=== PATIENT | male | born 1990 | race Caucasian/White ===

== ENCOUNTER 2017-03-16 20:39 | Emergency (ER) | payer SELFPAY ==
[~2017-03-16 20:39] MED LIST: Z.0.NO CURRENT MEDS
[2017-03-16 20:49] VITALS: BP 160/89; PULSE 98; RESP 20; TEMP 99.5; O2SAT 98
[2017-03-16 22:56] VITALS: BP 152/92; PULSE 79; RESP 20; O2SAT 99
--- NOTE | 2017-03-16 23:04 | PD ---
HPI Chief Complaint: Headache Time Seen by Provider: 23:00 Travel History International Travel<30 days: No Contact w/Intl Traveler<30days: No Traveled to known affect area: No History of Present Illness HPI 27-year-old male presents to the emergency department for complaint of right frontal headache that worsens with leaning forward and with coughing. Patient states has had headaches intermittently since craniotomy in 2006 secondary to injury. Headache is not described as sudden onset thunderclap or worst ever. Patient states headache is quite severe however presents today he took 3 Excedrin and did not seem to providing any relief. Patient's had subjective fever and myalgias and arthralgias did not have the flu vaccine. Patient's had some mild sore throat but no real throat pain nonproductive cough nausea without vomiting no chest pain no shortness of breath. No report of abdominal pain change in bowel habits or urinary symptoms. No joint pain or swelling. Does complain of myalgias and arthralgias. No skin rash. Patient rates pain as 2/10 in intensity. Patient also took a dose of Mucinex but he did not think that it made any difference. [facility] Past Medical History Narrative Medical Head injury, craniotomy, right shoulder dislocation, occasional alcohol use; nursing notes reviewed Asthma: No Autoimmune Disease: No Blood Disorders: No Anxiety: No Depression: No (HAS BEEN IN [facility] IN PAST, NOW WITH BROTHER) Cardiovascular Problems: No Diminished Hearing: No Genitourinary: No Musculoskeletal: Yes (STATED DISLOC R SHOLDER 15-20 TIMES) Neurologic: No Psychiatric: No Respiratory: No Sickle Cell Disease: No Past Surgical History Genitourinary Surgery: Yes (RIGHT IHR-INFANT) Neurologic Surgery: Yes (CRANIOTOMY r/t injury) Other Surgery: No Social History Alcohol Use: Yes (WEEKLY) Tobacco Use: No Substance Use: No Allergies-Medications (Allergen,Severity, Reaction): Coded Allergies: Sulfa (Sulfonamide Antibiotics) (Unverified Allergy, Unknown, unsure, 03/16) codeine (Unverified Allergy, Unknown, unsure, 03/16/17) Reported Meds & Prescriptions Reported Meds & Active Scripts Active Reported Day Time Cold-Flu Liquid (D-Methorphan/PE/Acetaminophen) 10 Mg-5 Mg-325 Mg/15 Ml Liquid 10 Mg PO Q6HR Excedrin Extra Strength (Ugevsof-Jtoyfcsnkbxge-Xxzbrbdg) 250 Mg-250 Mg-65 Mg Tab 500 Mg PO Q6HR No Current Meds (Miscellaneous Medication) Misc Narrative Medication Mucinex, Excedrin Review of Systems Except as stated in HPI: all other systems reviewed are Neg General / Constitutional: Positive: Fever, No: Chills HENT: Positive: Headaches, Sore Throat, Congestion (subjective), No: Neck Stiffness, Neck Pain, Ear Discharge, Earache Cardiovascular: No: Chest Pain or Discomfort Respiratory: Positive: Cough, No: Shortness of Breath, Wheezing (mild occasional intermittent) Gastrointestinal: Positive: Nausea, No: Vomiting, Diarrhea, Abdominal Pain Genitourinary: No: Dysuria, Flank Pain Musculoskeletal: Positive: Myalgias, Arthralgias Neurologic: Positive: Headache, No: Weakness, Dizziness, Syncope, Focal Abnormalities, Change in Mentation, Paresthesia, Seizures, Sensory Disturbance Psychiatric: No: Anxiety Hematologic/Lymphatic: No: Lymph Node Enlargement Physical Exam Narrative GENERAL: Well-developed well-nourished male in no acute distress no respiratory distress; GCS 15 SKIN: Warm and dry. HEAD: Atraumatic. Normocephalic. EYES: Pupils equal and round. No scleral icterus. No injection or drainage. ENT: No nasal bleeding or discharge. Mucous membranes pink and moist. NECK: Trachea midline. No JVD. CARDIOVASCULAR: Regular rate and rhythm. RESPIRATORY: No accessory muscle use. Clear to auscultation. Breath sounds equal bilaterally. GASTROINTESTINAL: Abdomen soft, non-tender, nondistended. Hepatic and splenic margins not palpable. MUSCULOSKELETAL: Extremities without clubbing, cyanosis, or edema. No obvious deformities. NEUROLOGICAL: Awake and alert. No obvious cranial nerve deficits. Motor grossly within normal limits. Five out of 5 muscle strength in the arms and legs. Normal speech. PSYCHIATRIC: Appropriate mood and affect; insight and judgment normal. Data Data Last Documented VS Vital Signs Date Time Temp Pulse Resp B/P (MAP) Pulse Ox O2 Delivery O2 Flow Rate FiO2 03/16/17 22:56 74 20 99 03/16/17 22:56 152/92 (112) 03/16/17 20:[address] Brain W/O Iv Contrast(Rout) (03/16/17 ) Influenzae A/B Antigen (03/16/17 23:04) MDM Medical Decision Making Medical Screen Exam Complete: Yes Emergency Medical Condition: Yes Medical Record Reviewed: Yes Interpretation(s) Influenza A/B antigen: Negative Last Impressions Head CT 03/16/17 0000 Signed Impressions: Service Date/Time: Thursday, March 16, 2017 23:23 - CONCLUSION: 1. No acute intracranial abnormalities. Sphenoid sinusitis and bilateral maxillary sinusitis. Evelio Kimble MD Vital Signs Date Time Temp Pulse Resp B/P (MAP) Pulse Ox O2 Delivery O2 Flow Rate FiO2 03/16/17 22:56 74 20 99 03/16/17 22:56 79 20 152/92 (112) 99 03/16/17 20:49 99.5 98 20 160/89 (112) 98 Differential Diagnosis Cephalgia, sinusitis, influenza, viral syndrome; also to consider ICH, SAH, migraine Narrative Course CT brain noncontrast ordered also specimen collected for influenza antigen Patient informed of fluid results as well as CT which is consistent with sinusitis Patient given prescription for azithromycin Tri-Woody is stable for outpatient management Diagnosis Primary Impression: Sinusitis, acute Additional Impression: Cephalgia Referrals: Primary Care Physician call for appointment Patient Instructions: General Instructions Additional Instructions: Increase fluid hydration Use [id number]-[id number] Afrin nasal decongestant spray per package directions Complete course of antibiotic May use [id number] acetaminophen and ibuprofen per package directions Follow-up with primary care provider Return to the emergency department for any concerns or change in condition Med/Other Pt SpecificInfo: Prescription(s) given Scripts Azithromycin (Zithromax Tri-Woody) 500 Mg Dspk 500 MG PO DAILY for Infection, #1 DSPK 0 Refills Prov: Linsey Cullen MD 03/17/17 Disposition: 01 DISCHARGE HOME Condition: Stable Linsey Cullen MD Mar 16, 2017 23:04
[2017-03-16] MEDS ORDERED: DEXTLIQ44 PO (23:06)
[2017-03-16] MEDS ORDERED: ASPI1TAB93 PO (23:06)
--- NOTE | 2017-03-16 23:40 | RADRPT ---
EXAM DATE/TIME: 03/16/2017 23:23 [facility] COMPARISON: No previous studies available for comparison. INDICATIONS : Cephalgia. RADIATION DOSE: 56.49 CTDIvol (mGy) MEDICAL HISTORY : None SURGICAL HISTORY : Craniotomy. ENCOUNTER: Initial ACUITY: 1 day PAIN SCALE: 2/10 LOCATION: Right frontal TECHNIQUE: Multiple contiguous axial images were obtained of the head. Using automated exposure control and adj ustment of the mA and/or kV according to patient size, radiation dose was kept as low as reasonably a chievable to obtain optimal diagnostic quality images. DICOM format image data is available electro nically for review and comparison. FINDINGS: No acute findings. No mass, hemorrhage or shift no hydrocephalus. Remote right craniotomy. Air-fluid levels in the maxillary sinus and right sphenoid sinus. Mucosal thickening ethmoid air cell s and left sphenoid sinus. Mastoids clear. CONCLUSION: 1. No acute intracranial abnormalities. Sphenoid sinusitis and bilateral maxillary sinusitis. Evelio Kimble MD on March 16, 2017 at 23:35 Board Certified Radiologist. This report was verified electronically.
[2017-03-17] MEDS ORDERED: ZITHTAB2 PO (00:21)
[2017-03-17 00:47] VITALS: BP 152/93
== END 2017-03-17 00:49 | disposition home or self-care (01) ==
LOC: PHED 20:39
DX: J01.30 Acute sphenoidal sinusitis, unspecified (principal); J01.00 Acute maxillary sinusitis, unspecified; R51 Headache; R05 Cough; Z88.2 Allergy status to sulfonamides; Z88.5 Allergy status to narcotic agent
CPT/HCPCS: 70450; 87804; 99284